=== PATIENT | male | born 1990 | race Caucasian/White ===

== ENCOUNTER 2023-02-10 11:32 | Emergency (ER) | payer OTHER, SELFPAY ==
[2023-02-10 11:45] VITALS: BP 151/76; PULSE 88; RESP 16; TEMP 36.9; O2SAT 99
[2023-02-10 11:48] VITALS: BP 151/76; PULSE 88; RESP 16; TEMP 36.9; O2SAT 99
[2023-02-10] MEDS: LEVALBUTEROL NEB 1.25 MG/3 ML INHALATION (12:00)
[2023-02-10] MEDS: IPRATROPIUM BR 0.02% INH SOLN 0.5 MG/2.5 ML VIAL INHALATION (12:00)
--- NOTE | 2023-02-10 12:40 | ED.ASTHMA ---
HPI - Asthma General Chief Complaint: Asthma Stated Complaint: Asthma Time Seen by Provider: 02/10/23 12:40 Source: patient, RN notes reviewed and old records reviewed Mode of arrival: ambulatory Limitations: no limitations History of Present Illness HPI Narrative: 32 year old male who presents to [facility] [place] [facility] with complaints of chipping an oak tree down at work which flared his asthma today, Patient reports that his chest feels tight and he used all of his albuterol inhaler, states he has new one at home. Patient reports that his chest feels tight and feels like he is wheezing. Oxygen saturation 99% color pink no acute tachypnea noted but tightness with scattered wheezing throughout lung mejia noted. MD complaint: shortness of breath and wheezing Onset (ago): hour(s) Treatments Prior to Arrival: other (rescue inhaler) Related Data Home Medications Medication Instructions Recorded Confirmed albuterol sulfate 90 mcg/actuation 90 inhalation DIRECTED 02/10/23 aerosol inhaler dextroamphetamine-amphetamine 30 30 BID 02/10/23 mg tablet montelukast 10 mg tablet 10 mg HS 02/10/23 02/10/23 Allergies Allergy/AdvReac Type Severity Reaction Status Date / Time ibuprofen Allergy Swelling Verified 02/10/23 11:47 Penicillins Allergy Hives Verified 02/10/23 11:47 Sulfa (Sulfonamide Allergy Hives Verified 02/10/23 11:47 Antibiotics) Review of Systems Review of Systems: CONSTITUTIONAL: Denies fever, chills, or sweats. EYES: Denies visual changes, redness, or discharge. ENT: Denies rhinorrhea, congestion, sore throat, or otalgia. CARDIOVASCULAR: Denies chest pain, palpitations, or edema. RESPIRATORY: Reports cough and dyspnea with wheezing with tightness to chest GASTROINTESTINAL: Denies abdominal pain, nausea, vomiting, or diarrhea. GENITOURINARY: Denies dysuria or hematuria. SKIN: Denies rash or itching. MUSCULOSKELETAL: Denies back pain, joint pain, or myalgia. NEUROLOGIC: Denies headache, numbness, or weakness. PSYCHIATRIC: Denies anxiety or depression. All systems reviewed & are unremarkable except as noted in HPI and below PMFSH Past Medical History Medical History (Updated 02/12/23 @ 18:23 by Maira Valencia NP) Asthma Comments At time of signature, agree with nursing past medical, surgical, social and family history. There is no relevant family history pertinent to the presenting complaint Exam Narrative: GENERAL: Well-appearing, well-nourished, and in no acute distress. HEAD: Normocephalic, atraumatic. EYES: PERRLA and EOMI. ENT: Nares clear, no rhinorrhea or epistaxis. Mucous membranes moist.TM's normal; with good light reflex, throat pink with no swelling NECK: Supple. no lymphadenopathy CHEST: scattered wheezing in all lung mejia on auscultation. No acute respiratory distress, reports tightness and pressure to chest HEART: Regular rate and rhythm. No murmur heard. Normal peripheral pulses. ABDOMEN: Soft, nontender, nondistended, normal active bowel sounds. EXTREMITIES: Normal range of motion. No edema. SKIN: Warm, dry, no rash. NEURO: No focal deficits. Alert and oriented x3. Course Course Emergency Course: Patient is aware of diagnosis, understands and agrees to treatment plan.? Anticipatory guidance given.? Patient agrees to follow-up as directed and is aware of reasons to seek care at the emergency department. Portions of this record may have been created with voice recognition software Level of Care: Express Care Visit Vital Signs Vital signs: Vital Signs Temperature 36.9 C 02/10/23 11:45 Pulse Rate 88 02/10/23 11:45 Respiratory Rate 16 02/10/23 11:45 Blood Pressure 151/76 H 02/10/23 11:45 Pulse Oximetry 99 02/10/23 11:45 Oxygen Delivery Room Air 02/10/23 11:45 Temperature 36.9 C 02/10/23 11:48 Pulse Rate 88 02/10/23 11:48 Respiratory Rate 16 02/10/23 11:48 Blood Pressure 151/76 H 02/10/23 11:48 Pulse Oximetry 99 02/10/23 11:48 O
== END 2023-02-10 13:10 | disposition home or self-care (01) ==
PROVIDERS: Emergency Provider Registered Nurse
DX: J45.41 Moderate persistent asthma with (acute) exacerbation (principal)
CPT/HCPCS: 94640; 99203; G0463